=== PATIENT | male | born 1985 | race Caucasian/White ===

== ENCOUNTER 2025-09-23 12:26 | Emergency (ER) | payer OTHER ==
[~2025-09-23] VITALS: Ht 170.2 cm; Wt 66.7 kg
[2025-09-23] MEDS ORDERED: DEXAMETHASONE SODIUM PHOSPHATE 4 MG/ML VIAL IM ONE (15:45)
[2025-09-23] MEDS ORDERED: ACETAMINOPHEN 500 MG GEL..CAP PO ONE ×2 (15:45→16:34)
[2025-09-23] MEDS ORDERED: DEXAMETHASONE SODIUM PHOSPHATE 4 MG/ML VIAL ONE (16:34)
== END 2025-09-23 19:20 | disposition home or self-care (01) ==
LOC: ER 12:26
DX: S09.8XXA Other specified injuries of head, initial encounter (principal); W19.XXXA Unspecified fall, initial encounter; Y93.18 Activity, surfing, windsurfing and boogie boarding; Y92.832 Beach as the place of occurrence of the external cause; Y99.8 Other external cause status; R42 Dizziness and giddiness